=== PATIENT | female | born 1940 | race African-American/Black ===

== ENCOUNTER 2024-05-09 16:13 | Emergency (ER) | payer OTHER ==
[~2024-05-09] VITALS: Ht 162.6 cm; Wt 82.0 kg
[2024-05-09 16:14] VITALS: O2SAT 100
[2024-05-09] MEDS ORDERED: DICYCLOMINE 10 MG/5 ML ORAL SYR PO STA (16:40)
[2024-05-09] MEDS: ONDANSETRON 4MG ODT PO STA (17:24)
[2024-05-09] MEDS: DICYCLOMINE HCL 10MG CAPSULE PO NR (17:24)
[2024-05-09] MEDS: MAGNESIUM/ALUMINUM HYDROXIDE/SIMETHICONE 30ML UDC PO STA (17:24)
[2024-05-09] MEDS: FAMOTIDINE 20MG TABLET PO ONE (17:24)
[2024-05-09] MEDS ORDERED: FAMO-135 MT (19:54)
[2024-05-09] MEDS: HYDROCODONE/ACETAMINOPHEN 5/325MG TABLET PO ONE (23:49)
[2024-05-10 00:58] VITALS: BP 128/44; PULSE 88; RESP 18; TEMP 37.1; O2SAT 100
== END 2024-05-10 01:05 | disposition home or self-care (01) ==
LOC: ER 16:13
DX: K80.20 Calculus of gallbladder without cholecystitis without obstruction (principal); K29.70 Gastritis, unspecified, without bleeding; E11.9 Type 2 diabetes mellitus without complications; I11.0 Hypertensive heart disease with heart failure; I50.9 Heart failure, unspecified; J44.9 Chronic obstructive pulmonary disease, unspecified; Z99.2 Dependence on renal dialysis; Z90.710 Acquired absence of both cervix and uterus; Z55.6 Problems related to health literacy
CPT/HCPCS: 99284; 74176; 71045; 93005; Q0162